=== PATIENT | male | born 1965 | race Caucasian/White ===

== ENCOUNTER 2017-08-04 11:45 | Day surgery (SDC) | payer OTHER ==
[~2017-08-04] VITALS: Ht 195.6 cm; Wt 93.2 kg
[2017-08-04 11:55] VITALS: BP 130/80
[2017-08-04] MEDS ORDERED: NO HOME MEDS (12:01)
[2017-08-04] MEDS ORDERED: fentaNYL/PF 50MCG/1 ML 2ML syringe ONE (12:17)
[2017-08-04] MEDS ORDERED: MIDAZolam 1mg/ml 10ml vial ONE (12:17)
[2017-08-04 13:32] VITALS: BP 129/78
[2017-08-04 13:40] VITALS: BP 129/79
[2017-08-04 13:50] VITALS: BP 131/78
[2017-08-04 14:00] VITALS: BP 124/60
== END 2017-08-04 14:14 | disposition home or self-care (01) ==
LOC: GI LAB 11:45
PROVIDERS: ATTEND Internal Medicine Gastroenterology
DX: Z12.11 Encounter for screening for malignant neoplasm of colon (principal); Z90.89 Acquired absence of other organs; Z98.890 Other specified postprocedural states; Z72.89 Other problems related to lifestyle
CPT/HCPCS: 45378; 99152; J2250; J3010; J7030; A4620; G0500

== ENCOUNTER 2018-04-09 07:04 | Outpatient (CLI) | payer OTHER ==
[~2018-04-09 07:04] MED LIST: NO HOME MEDS
[2018-04-09 08:33] LABS: BASOPHILS # (AUTO) 0.1 X10'3 (0-0.2); BASOPHILS % (AUTO) 1.1 % (0-1); EOSINOPHILS # (AUTO) 0.1 X10'3 (0-0.9); EOSINOPHILS % (AUTO) 1.8 % (0-6); HEMATOCRIT 48.8 % (42.0-52.0); HEMOGLOBIN 16.6 g/dl (14.0-17.9); LYMPHOCYTES # (AUTO) 1.6 X10'3 (1.1-4.8); LYMPHOCYTES % (AUTO) 31.4 % (21-51); MEAN CORPUSCULAR HEMOGLOBIN 32.3 PG (27.0-31.0); MEAN CORPUSCULAR VOLUME 94.9 FL (78-98); MEAN PLATELET VOLUME 9.6 FL (7.4-10.4); MONOCYTES # (AUTO) 0.4 X10'3 (0-0.9); MONOCYTES % (AUTO) 7.8 % (2-12); NEUTROPHILS # (AUTO) 2.9 X10'3 (1.8-7.7); NEUTROPHILS % (AUTO) 57.9 % (42-75); PLATELET COUNT 199 X10'3 (140-440); RED BLOOD COUNT 5.15 X10'6 (4.70-6.10); RED CELL DISTRIBUTION WIDTH 13.1 % (11.5-14.5); WHITE BLOOD COUNT 4.9 X10'3 (4.5-11.0)
[2018-04-09 09:18] LABS: ALANINE AMINOTRANSFERASE 33 U/L (12-78); ALBUMIN 4.5 G/DL (3.4-5.0); ALBUMIN/GLOBULIN RATIO 1.2 (1.1-1.5); ALKALINE PHOSPHATASE 87 IU/L (46-116); ANION GAP 10 (8-16); ASPARTATE AMINO TRANSFERASE 23 U/L (10-37); BILIRUBIN,TOTAL 0.6 MG/DL (0.1-1.0); BLOOD UREA NITROGEN 19 MG/DL (7-18); BUN/CREATININE RATIO 19.2 (5.4-32.0); CALCIUM 9.2 MG/DL (8.5-10.1); CHLORIDE 102 MMOL/L (99-107); CREATININE 0.99 MG/DL (0.60-1.10); FERRITIN 218 NG/ML (26-388); GLUCOSE 89 MG/DL (70-104); MAGNESIUM 2.3 MG/DL (1.5-2.4); SODIUM 140 MMOL/L (135-145); TOTAL CARBON DIOXIDE 28.3 MMOL/L (24-32); TOTAL PROTEIN 8.4 G/DL (6.4-8.2); eGFR 79 ML/MIN
[2018-04-09 10:57] LABS: CHOL/HDL RATIO 2.8 (0.00-4.99); CHOLESTEROL 224 MG/DL (0-200); HDL CHOLESTEROL 80 MG/DL (35-60); LDL CHOLESTEROL 137 MG/DL (50-100); TRIGLYCERIDES 53 MG/DL (20-135)
[2018-04-10 05:20] LABS: VITAMIN D, 25-HYDROXY 42.9 ng/mL (30.0-100.0)
[2018-04-10 06:17] LABS: PSA, ULTRASENSITIVE W/O SERIAL 0.722 ng/mL (0.000-4.000)
[2018-04-10 09:53] LABS: ESTRADIOL 29.7 pg/mL (7.6-42.6); SEX HORM BINDING GLOB, SERUM 78.9 nmol/L (19.3-76.4)
[2018-04-10 11:10] LABS: ACTH, PLASMA 45.3 pg/mL (7.2-63.3)
[2018-04-10 13:21] LABS: THIIODOTHRONINE, FREE, SERUM 4.1 pg/mL (2.0-4.4)
== END 2018-04-09 23:59 | disposition home or self-care (01) ==
LOC: LAB 07:04
PROVIDERS: ATTEND Anesthesiology
DX: D50.9 Iron deficiency anemia, unspecified (principal); E60 Dietary zinc deficiency; T56.1X4A Toxic effect of mercury and its compounds, undetermined, initial encounter; E27.40 Unspecified adrenocortical insufficiency; E27.9 Disorder of adrenal gland, unspecified; E55.9 Vitamin D deficiency, unspecified; E02 Subclinical iodine-deficiency hypothyroidism; E59 Dietary selenium deficiency; R79.1 Abnormal coagulation profile; R73.01 Impaired fasting glucose; R53.81 Other malaise; R53.83 Other fatigue; R79.82 Elevated C-reactive protein (CRP); E06.3 Autoimmune thyroiditis; E06.9 Thyroiditis, unspecified; R35.1 Nocturia; N40.0 Benign prostatic hyperplasia without lower urinary tract symptoms; E46 Unspecified protein-calorie malnutrition; E29.1 Testicular hypofunction; E29.9 Testicular dysfunction, unspecified; Y92.89 Other specified places as the place of occurrence of the external cause
CPT/HCPCS: 36415; 80053; 80061; 82024; 82306; 82533; 82670; 82679; 82728; 83520; 83735; 84153; 84270; 84439; 84443; 84481; 84630; 85025; 86140

== ENCOUNTER 2018-04-28 12:41 | Outpatient (CLI) | payer OTHER | END 2018-04-28 23:59 | disposition home or self-care (01) | LOC: RAD 12:41 | PROVIDERS: ATTEND Family Medicine | DX: R10.11 Right upper quadrant pain (principal) | CPT/HCPCS: 76700 ==

== ENCOUNTER 2018-10-07 14:21 | Outpatient (CLI) | payer OTHER | END 2018-10-07 23:59 | disposition home or self-care (01) | LOC: RAD 14:21 | PROVIDERS: ATTEND Family Medicine | DX: Z00.00 Encounter for general adult medical examination without abnormal findings (principal); J92.9 Pleural plaque without asbestos; G47.30 Sleep apnea, unspecified; F17.290 Nicotine dependence, other tobacco product, uncomplicated; Z86.008 Personal history of in-situ neoplasm of other site | CPT/HCPCS: 71101 ==

== ENCOUNTER 2018-12-07 13:45 | Outpatient (CLI) | payer OTHER ==
[~2018-12-07] VITALS: Ht 193 cm; Wt 93.2 kg
[2018-12-07] MEDS ORDERED: NORMAL SALINE IV ONE (15:30)
[2018-12-07] MEDS ORDERED: SINCALIDE IV ONE (15:30)
== END 2018-12-07 23:59 | disposition home or self-care (01) ==
LOC: RAD 13:45
PROVIDERS: ATTEND Family Medicine
DX: K82.9 Disease of gallbladder, unspecified (principal)
CPT/HCPCS: 78227; A9537; J2805; J7030

== ENCOUNTER 2019-05-26 12:47 | Outpatient (CLI) | payer OTHER ==
[2019-05-26] MEDS ORDERED: iohexol 300mg/ml 100ml inj. ONE ×2 (14:14→14:46)
[2019-05-26 15:29] LABS: CLARITY,URINE CLEAR (Clear); COLOR,URINE YELLOW (Yellow); GLUCOSE, URINE NEGATIVE (Neg); KETONES,URINE NEGATIVE (Neg); LEUKOCYTE ESTERASE ,URINE NEGATIVE (Neg); NITRITES, URINE NEGATIVE (Neg); OCCULT BLOOD,URINE TRACE-INTACT (Neg); PH,URINE 6.5 (4.8-8.0); PROTEIN,URINE NEGATIVE (Neg); UROBILINOGEN,URINE 0.2 E.U/dL (0.2-1.0)
[2019-05-26 15:30] LABS: UA COLLECTION TYPE NON-SPECIFIED
[2019-05-26 15:58] LABS: MUCUS STRANDS FEW /LPF (Neg)
[2019-05-26 15:59] LABS: SQUAMOUS EPITHELIAL CELL,UR NONE SEEN /LPF (FEW)
[2019-05-26 16:00] LABS: RBC,URINE 0-2 /HPF (0-2); WBC,URINE 0-4 /HPF (0-4)
[2019-05-26 16:01] LABS: BACTERIA,URINE NONE SEEN /HPF (Neg)
[2019-05-26 16:12] LABS: BASOPHILS % (AUTO) 0.4 % (0-1); EOSINOPHILS % (AUTO) 0.4 % (0-6); HEMATOCRIT 46.8 % (42.0-52.0); HEMOGLOBIN 16.3 g/dl (14.0-17.9); LYMPHOCYTES # (AUTO) 1.7 X10'3 (1.1-4.8); LYMPHOCYTES % (AUTO) 26.1 % (21-51); MEAN CORPUSCULAR HEMOGLOBIN 32.8 PG (27.0-31.0); MEAN CORPUSCULAR HGB CONC 34.9 g/dL (33.0-36.5); MEAN CORPUSCULAR VOLUME 93.9 FL (78-98); MEAN PLATELET VOLUME 8.9 FL (7.4-10.4); MONOCYTES # (AUTO) 0.4 X10'3 (0-0.9); MONOCYTES % (AUTO) 6.6 % (2-12); NEUTROPHILS # (AUTO) 4.3 X10'3 (1.8-7.7); NEUTROPHILS % (AUTO) 66.5 % (42-75); PLATELET COUNT 209 X10'3 (140-440); RED BLOOD COUNT 4.99 X10'6 (4.70-6.10); RED CELL DISTRIBUTION WIDTH 12.7 % (11.5-14.5); WHITE BLOOD COUNT 6.5 X10'3 (4.5-11.0)
[2019-05-26 16:26] LABS: ALANINE AMINOTRANSFERASE 35 U/L (12-78); ALBUMIN 4.5 G/DL (3.4-5.0); ALBUMIN/GLOBULIN RATIO 1.2 (1.1-1.5); ALKALINE PHOSPHATASE 87 IU/L (46-116); ANION GAP 11 (8-16); ASPARTATE AMINO TRANSFERASE 20 U/L (10-37); BILIRUBIN,TOTAL 0.6 MG/DL (0.1-1.0); BLOOD UREA NITROGEN 12 MG/DL (7-18); BUN/CREATININE RATIO 11.9 (5.4-32.0); CALCIUM 9.4 MG/DL (8.5-10.1); CHLORIDE 105 MMOL/L (99-107); CHOL/HDL RATIO 3.5 (0.00-4.99); CHOLESTEROL 233 MG/DL (0-200); CREATININE 1.01 MG/DL (0.60-1.10); GLUCOSE 80 MG/DL (70-104); HDL CHOLESTEROL 66 MG/DL (35-60); LDL CHOLESTEROL 153 MG/DL (50-100); SODIUM 142 MMOL/L (135-145); TOTAL CARBON DIOXIDE 25.8 MMOL/L (24-32); TOTAL PROTEIN 8.4 G/DL (6.4-8.2); TRIGLYCERIDES 58 MG/DL (20-135); eGFR 77 ML/MIN
[2019-05-26 17:04] LABS: MAGNESIUM 2.2 MG/DL (1.5-2.4)
== END 2019-05-26 23:59 | disposition home or self-care (01) ==
LOC: 64 CT 12:47
PROVIDERS: ATTEND Family Medicine
DX: R10.11 Right upper quadrant pain (principal); K40.90 Unilateral inguinal hernia, without obstruction or gangrene, not specified as recurrent; R77.9 Abnormality of plasma protein, unspecified; D50.9 Iron deficiency anemia, unspecified; N40.0 Benign prostatic hyperplasia without lower urinary tract symptoms; I10 Essential (primary) hypertension
CPT/HCPCS: 36415; 71260; 74176; 74177; 76937; 80053; 80061; 81001; 83735; 84402; 84403; 84439; 84443; 85025; Q9967

== ENCOUNTER 2019-05-26 15:28 | Outpatient (CLI) | payer OTHER ==
[2019-05-26 16:48] LABS: HEMATOCRIT 46.8 % (42.0-52.0); HEMOGLOBIN 16.3 g/dl (14.0-17.9); MEAN CORPUSCULAR HEMOGLOBIN 32.8 PG (27.0-31.0); MEAN CORPUSCULAR HGB CONC 34.9 g/dL (33.0-36.5); MEAN CORPUSCULAR VOLUME 93.9 FL (78-98); MEAN PLATELET VOLUME 8.9 FL (7.4-10.4); NEUTROPHILS % (AUTO) 66.5 % (42-75); PLATELET COUNT 209 X10'3 (140-440); RED BLOOD COUNT 4.99 X10'6 (4.70-6.10); RED CELL DISTRIBUTION WIDTH 12.7 % (11.5-14.5); WHITE BLOOD COUNT 6.5 X10'3 (4.5-11.0)
[2019-05-26 16:49] LABS: BASOPHILS % (AUTO) 0.4 % (0-1); EOSINOPHILS % (AUTO) 0.4 % (0-6); LYMPHOCYTES # (AUTO) 1.7 X10'3 (1.1-4.8); LYMPHOCYTES % (AUTO) 26.1 % (21-51); MONOCYTES # (AUTO) 0.4 X10'3 (0-0.9); MONOCYTES % (AUTO) 6.6 % (2-12); NEUTROPHILS # (AUTO) 4.3 X10'3 (1.8-7.7)
[2019-05-26 16:50] LABS: ANION GAP 11 (8-16); BLOOD UREA NITROGEN 12 MG/DL (7-18); BUN/CREATININE RATIO 11.9 (5.4-32.0); CALCIUM 9.4 MG/DL (8.5-10.1); CHLORIDE 105 MMOL/L (99-107); CREATININE 1.01 MG/DL (0.60-1.10); GLUCOSE 80 MG/DL (70-104); SODIUM 142 MMOL/L (135-145); TOTAL CARBON DIOXIDE 25.8 MMOL/L (24-32); eGFR 77 ML/MIN
[2019-05-26 16:51] LABS: ALANINE AMINOTRANSFERASE 35 U/L (12-78); ALBUMIN 4.5 G/DL (3.4-5.0); ALBUMIN/GLOBULIN RATIO 1.2 (1.1-1.5); ALKALINE PHOSPHATASE 87 IU/L (46-116); ASPARTATE AMINO TRANSFERASE 20 U/L (10-37); BILIRUBIN,TOTAL 0.6 MG/DL (0.1-1.0); TOTAL PROTEIN 8.4 G/DL (6.4-8.2)
[2019-05-26 16:54] LABS: HEMOGLOBIN A1C 5.7 % (4.5-6.2)
[2019-05-26 17:13] LABS: MAGNESIUM 2.2 MG/DL (1.5-2.4)
[2019-05-28 08:09] LABS: PSA, ULTRASENSITIVE W/O SERIAL 0.645 ng/mL (0.000-4.000)
[2019-05-28 11:09] LABS: ESTRADIOL 20.5 pg/mL (7.6-42.6); SEX HORM BINDING GLOB, SERUM 62.7 nmol/L (19.3-76.4)
== END 2019-05-26 23:59 | disposition home or self-care (01) ==
LOC: LAB 15:28
PROVIDERS: ATTEND Anesthesiology
DX: D50.9 Iron deficiency anemia, unspecified (principal); N40.0 Benign prostatic hyperplasia without lower urinary tract symptoms; E34.9 Endocrine disorder, unspecified; E23.0 Hypopituitarism; I10 Essential (primary) hypertension; R79.1 Abnormal coagulation profile; R68.89 Other general symptoms and signs; R73.01 Impaired fasting glucose
CPT/HCPCS: 36415; 80053; 82670; 82679; 83036; 83735; 84153; 84270; 84305; 85025

== ENCOUNTER 2019-07-07 14:22 | Outpatient (CLI) | payer OTHER ==
[2019-07-07 15:38] LABS: BASOPHILS % (AUTO) 0.6 % (0-1); EOSINOPHILS # (AUTO) 0.1 X10'3 (0-0.9); EOSINOPHILS % (AUTO) 1.4 % (0-6); HEMATOCRIT 47.3 % (42.0-52.0); HEMOGLOBIN 16.3 g/dl (14.0-17.9); LYMPHOCYTES # (AUTO) 1.6 X10'3 (1.1-4.8); LYMPHOCYTES % (AUTO) 27.4 % (21-51); MEAN CORPUSCULAR HEMOGLOBIN 32.7 PG (27.0-31.0); MEAN CORPUSCULAR HGB CONC 34.4 g/dL (33.0-36.5); MEAN CORPUSCULAR VOLUME 95.2 FL (78-98); MEAN PLATELET VOLUME 9.4 FL (7.4-10.4); MONOCYTES # (AUTO) 0.6 X10'3 (0-0.9); MONOCYTES % (AUTO) 10.5 % (2-12); NEUTROPHILS # (AUTO) 3.4 X10'3 (1.8-7.7); NEUTROPHILS % (AUTO) 60.1 % (42-75); PLATELET COUNT 221 X10'3 (140-440); RED BLOOD COUNT 4.97 X10'6 (4.70-6.10); RED CELL DISTRIBUTION WIDTH 13.3 % (11.5-14.5); WHITE BLOOD COUNT 5.7 X10'3 (4.5-11.0)
[2019-07-07 15:53] LABS: ALANINE AMINOTRANSFERASE 36 U/L (12-78); ALBUMIN/GLOBULIN RATIO 1.1 (1.1-1.5); ALKALINE PHOSPHATASE 91 IU/L (46-116); ANION GAP 4 (8-16); ASPARTATE AMINO TRANSFERASE 17 U/L (10-37); BILIRUBIN,TOTAL 0.5 MG/DL (0.1-1.0); BLOOD UREA NITROGEN 16 MG/DL (7-18); BUN/CREATININE RATIO 15.2 (5.4-32.0); CALCIUM 8.8 MG/DL (8.5-10.1); CHLORIDE 108 MMOL/L (99-107); CREATININE 1.05 MG/DL (0.60-1.10); GLUCOSE 86 MG/DL (70-104); POTASSIUM 4.1 MMOL/L (3.5-5.1); SODIUM 144 MMOL/L (135-145); TOTAL CARBON DIOXIDE 32.5 MMOL/L (24-32); TOTAL PROTEIN 7.5 G/DL (6.4-8.2); eGFR 73 ML/MIN
[2019-07-09 13:05] LABS: ESTRADIOL 21.5 pg/mL (7.6-42.6)
[2019-07-09 17:21] LABS: PSA, ULTRASENSITIVE W/O SERIAL 0.937 ng/mL (0.000-4.000)
== END 2019-07-07 23:59 | disposition home or self-care (01) ==
LOC: LAB 14:22
PROVIDERS: ATTEND Anesthesiology
DX: E29.1 Testicular hypofunction (principal)
CPT/HCPCS: 36415; 80053; 82670; 82679; 83735; 84153; 85025

== ENCOUNTER 2020-01-26 12:53 | Outpatient (CLI) | payer BC | END 2020-01-26 23:59 | disposition home or self-care (01) | LOC: RAD 12:53 | PROVIDERS: ATTEND Family Medicine | DX: M48.02 Spinal stenosis, cervical region (principal) | CPT/HCPCS: 72141 ==

== ENCOUNTER → 2020-04-20 | Outpatient (CLI) | payer BC ==
[2020-04-20 13:53] LABS: BASOPHILS # (AUTO) 0.1 X10'3 (0-0.2); BASOPHILS % (AUTO) 0.9 % (0-1); EOSINOPHILS # (AUTO) 0.2 X10'3 (0-0.9); EOSINOPHILS % (AUTO) 2.4 % (0-6); HEMATOCRIT 48.1 % (42.0-52.0); HEMOGLOBIN 16.4 g/dl (14.0-17.9); MEAN CORPUSCULAR HEMOGLOBIN 32.8 PG (27.0-31.0); MEAN CORPUSCULAR VOLUME 96.4 FL (78-98); MEAN PLATELET VOLUME 8.7 FL (7.4-10.4); MONOCYTES # (AUTO) 0.6 X10'3 (0-0.9); MONOCYTES % (AUTO) 9.3 % (2-12); NEUTROPHILS # (AUTO) 3.8 X10'3 (1.8-7.7); NEUTROPHILS % (AUTO) 57.4 % (42-75); PLATELET COUNT 193 X10'3 (140-440); RED BLOOD COUNT 4.99 X10'6 (4.70-6.10); RED CELL DISTRIBUTION WIDTH 13.1 % (11.5-14.5); WHITE BLOOD COUNT 6.6 X10'3 (4.5-11.0)
[2020-04-20 14:07] LABS: ALANINE AMINOTRANSFERASE 37 U/L (12-78); ALBUMIN 4.6 G/DL (3.4-5.0); ALBUMIN/GLOBULIN RATIO 1.3 (1.1-1.5); ALKALINE PHOSPHATASE 99 IU/L (46-116); ANION GAP 5 (8-16); ASPARTATE AMINO TRANSFERASE 23 U/L (10-37); BILIRUBIN,TOTAL 0.5 MG/DL (0.1-1.0); BLOOD UREA NITROGEN 19 MG/DL (7-18); CALCIUM 8.7 MG/DL (8.5-10.1); CHLORIDE 103 MMOL/L (99-107); CREATININE 1.12 MG/DL (0.60-1.10); GLUCOSE 80 MG/DL (70-104); POTASSIUM 3.8 MMOL/L (3.5-5.1); SODIUM 135 MMOL/L (135-145); TOTAL CARBON DIOXIDE 27.1 MMOL/L (24-32); TOTAL PROTEIN 8.2 G/DL (6.4-8.2); eGFR 68 ML/MIN
[2020-04-20 15:38] LABS: HEMOGLOBIN A1C 5.2 % (4.5-6.2)
== END | disposition home or self-care (01) ==
LOC: LAB 13:19
PROVIDERS: ATTEND Anesthesiology
DX: I10 Essential (primary) hypertension (principal); N40.0 Benign prostatic hyperplasia without lower urinary tract symptoms; D50.0 Iron deficiency anemia secondary to blood loss (chronic); E55.9 Vitamin D deficiency, unspecified; R68.89 Other general symptoms and signs; R79.1 Abnormal coagulation profile; R73.01 Impaired fasting glucose; E29.1 Testicular hypofunction; E29.9 Testicular dysfunction, unspecified; R53.81 Other malaise; R53.83 Other fatigue; Z13.21 Encounter for screening for nutritional disorder
CPT/HCPCS: 36415; 80053; 82670; 82679; 83036; 83735; 84153; 84402; 84403; 84410; 85025

== ENCOUNTER → 2020-05-10 | Emergency (ER) | payer BC ==
[~2020-05-10] VITALS: Ht 195.6 cm; Wt 97.7 kg
[2020-05-10 13:15] VITALS: BP 141/88
== END | disposition home or self-care (01) ==
LOC: ER 12:49
DX: R51.9 Headache, unspecified (principal); Z20.828 Contact with and (suspected) exposure to other viral communicable diseases
CPT/HCPCS: 36415; 99282

== ENCOUNTER 2020-07-19 12:26 | Outpatient (CLI) | payer BC ==
[2020-07-19 13:34] LABS: BASOPHILS % (AUTO) 0.6 % (0-1); EOSINOPHILS # (AUTO) 0.1 X10'3 (0-0.9); EOSINOPHILS % (AUTO) 0.9 % (0-6); HEMOGLOBIN 17.1 g/dl (14.0-17.9); LYMPHOCYTES # (AUTO) 1.2 X10'3 (1.1-4.8); LYMPHOCYTES % (AUTO) 16.1 % (21-51); MEAN CORPUSCULAR HEMOGLOBIN 32.6 PG (27.0-31.0); MEAN CORPUSCULAR HGB CONC 34.2 g/dL (33.0-36.5); MEAN CORPUSCULAR VOLUME 95.2 FL (78-98); MEAN PLATELET VOLUME 9.8 FL (7.4-10.4); MONOCYTES # (AUTO) 0.5 X10'3 (0-0.9); MONOCYTES % (AUTO) 7.4 % (2-12); NEUTROPHILS # (AUTO) 5.5 X10'3 (1.8-7.7); PLATELET COUNT 188 X10'3 (140-440); RED BLOOD COUNT 5.25 X10'6 (4.70-6.10); RED CELL DISTRIBUTION WIDTH 12.8 % (11.5-14.5); WHITE BLOOD COUNT 7.3 X10'3 (4.5-11.0)
[2020-07-19 13:45] LABS: ALANINE AMINOTRANSFERASE 42 U/L (12-78); ALBUMIN 4.7 G/DL (3.4-5.0); ALBUMIN/GLOBULIN RATIO 1.2 (1.1-1.5); ALKALINE PHOSPHATASE 107 IU/L (46-116); ANION GAP 9 (8-16); ASPARTATE AMINO TRANSFERASE 21 U/L (10-37); BILIRUBIN,TOTAL 0.6 MG/DL (0.1-1.0); BLOOD UREA NITROGEN 17 MG/DL (7-18); BUN/CREATININE RATIO 15.6 (5.4-32.0); CALCIUM 9.3 MG/DL (8.5-10.1); CHLORIDE 104 MMOL/L (99-107); CHOLESTEROL 219 MG/DL (0-200); CREATININE 1.09 MG/DL (0.60-1.10); GLUCOSE 88 MG/DL (70-104); HDL CHOLESTEROL 72 MG/DL (35-60); LDL CHOLESTEROL 138 MG/DL (50-100); MAGNESIUM 2.1 MG/DL (1.5-2.4); POTASSIUM 4.1 MMOL/L (3.5-5.1); SODIUM 140 MMOL/L (135-145); TOTAL PROTEIN 8.5 G/DL (6.4-8.2); TRIGLYCERIDES 62 MG/DL (20-135); eGFR 70 ML/MIN
[2020-07-19 13:53] LABS: HEMOGLOBIN A1C 5.6 % (4.5-6.2)
[2020-07-20 09:06] LABS: ESTRADIOL <5.0 pg/mL (7.6-42.6); PSA, ULTRASENSITIVE W/O SERIAL 0.748 ng/mL (0.000-4.000)
[2020-07-20 15:58] LABS: ACTH, PLASMA 24.8 pg/mL (7.2-63.3)
== END 2020-07-19 23:59 | disposition home or self-care (01) ==
LOC: LAB 12:26
PROVIDERS: ATTEND Anesthesiology
DX: Z13.21 Encounter for screening for nutritional disorder (principal); I10 Essential (primary) hypertension; R68.89 Other general symptoms and signs; D50.9 Iron deficiency anemia, unspecified; R79.1 Abnormal coagulation profile; R73.01 Impaired fasting glucose; N40.0 Benign prostatic hyperplasia without lower urinary tract symptoms; E29.1 Testicular hypofunction; E55.9 Vitamin D deficiency, unspecified; E29.9 Testicular dysfunction, unspecified; R53.81 Other malaise; R53.83 Other fatigue; Z01.84 Encounter for antibody response examination
CPT/HCPCS: 36415; 80053; 80061; 82024; 82670; 82679; 83036; 83735; 84153; 85025

== ENCOUNTER 2020-12-17 13:37 | Outpatient (CLI) | payer BC ==
[2020-12-17 14:16] LABS: BASOPHILS % (AUTO) 0.5 % (0-1); EOSINOPHILS # (AUTO) 0.2 X10'3 (0-0.9); EOSINOPHILS % (AUTO) 3.3 % (0-6); HEMOGLOBIN 16.3 g/dl (14.0-17.9); LYMPHOCYTES # (AUTO) 1.6 X10'3 (1.1-4.8); LYMPHOCYTES % (AUTO) 28.2 % (21-51); MEAN CORPUSCULAR HEMOGLOBIN 32.9 PG (27.0-31.0); MEAN CORPUSCULAR VOLUME 96.9 FL (78-98); MEAN PLATELET VOLUME 8.9 FL (7.4-10.4); MONOCYTES # (AUTO) 0.5 X10'3 (0-0.9); MONOCYTES % (AUTO) 9.8 % (2-12); NEUTROPHILS # (AUTO) 3.2 X10'3 (1.8-7.7); NEUTROPHILS % (AUTO) 58.2 % (42-75); PLATELET COUNT 188 X10'3 (140-440); RED BLOOD COUNT 4.95 X10'6 (4.70-6.10); RED CELL DISTRIBUTION WIDTH 12.8 % (11.5-14.5); WHITE BLOOD COUNT 5.6 X10'3 (4.5-11.0)
[2020-12-17 14:29] LABS: ALANINE AMINOTRANSFERASE 33 U/L (12-78); ALBUMIN 4.2 G/DL (3.4-5.0); ALBUMIN/GLOBULIN RATIO 1.3 (1.1-1.5); ALKALINE PHOSPHATASE 89 IU/L (46-116); ANION GAP 6 (8-16); ASPARTATE AMINO TRANSFERASE 22 U/L (10-37); BILIRUBIN,TOTAL 0.5 MG/DL (0.1-1.0); BLOOD UREA NITROGEN 18 MG/DL (7-18); BUN/CREATININE RATIO 16.5 (5.4-32.0); CALCIUM 8.4 MG/DL (8.5-10.1); CHLORIDE 106 MMOL/L (99-107); CREATININE 1.09 MG/DL (0.60-1.10); GLUCOSE 78 MG/DL (70-104); POTASSIUM 3.9 MMOL/L (3.5-5.1); SODIUM 140 MMOL/L (135-145); TOTAL CARBON DIOXIDE 27.9 MMOL/L (24-32); TOTAL PROTEIN 7.5 G/DL (6.4-8.2); eGFR 70 ML/MIN
[2020-12-17 14:44] LABS: HEMOGLOBIN A1C 5.7 % (4.5-6.2)
== END 2020-12-17 23:59 | disposition home or self-care (01) ==
LOC: LAB 13:37
DX: N40.0 Benign prostatic hyperplasia without lower urinary tract symptoms (principal); E29.1 Testicular hypofunction; E55.9 Vitamin D deficiency, unspecified; E29.9 Testicular dysfunction, unspecified; R53.81 Other malaise; R53.83 Other fatigue; R68.89 Other general symptoms and signs; D50.9 Iron deficiency anemia, unspecified; R79.1 Abnormal coagulation profile; R73.01 Impaired fasting glucose; I10 Essential (primary) hypertension; Z13.21 Encounter for screening for nutritional disorder
CPT/HCPCS: 36415; 80053; 82306; 82670; 82679; 83036; 83735; 84153; 84154; 84410; 85025

== ENCOUNTER 2020-12-24 05:14 | Emergency (ER) | payer BC ==
[~2020-12-24] VITALS: Ht 195.6 cm; Wt 100.0 kg
[2020-12-24 06:01] LABS: BASOPHILS % (AUTO) 0.5 % (0-1); EOSINOPHILS # (AUTO) 0.2 X10'3 (0-0.9); EOSINOPHILS % (AUTO) 3.4 % (0-6); HEMATOCRIT 46.5 % (42.0-52.0); HEMOGLOBIN 15.9 g/dl (14.0-17.9); LYMPHOCYTES # (AUTO) 1.6 X10'3 (1.1-4.8); LYMPHOCYTES % (AUTO) 27.8 % (21-51); MEAN CORPUSCULAR HEMOGLOBIN 32.8 PG (27.0-31.0); MEAN CORPUSCULAR HGB CONC 34.2 g/dL (33.0-36.5); MEAN CORPUSCULAR VOLUME 95.8 FL (78-98); MEAN PLATELET VOLUME 8.8 FL (7.4-10.4); MONOCYTES # (AUTO) 0.5 X10'3 (0-0.9); MONOCYTES % (AUTO) 9.6 % (2-12); NEUTROPHILS # (AUTO) 3.4 X10'3 (1.8-7.7); NEUTROPHILS % (AUTO) 58.7 % (42-75); PLATELET COUNT 189 X10'3 (140-440); RED BLOOD COUNT 4.85 X10'6 (4.70-6.10); RED CELL DISTRIBUTION WIDTH 12.8 % (11.5-14.5); WHITE BLOOD COUNT 5.7 X10'3 (4.5-11.0)
[2020-12-24] MEDS ORDERED: OMEP40CA21 PO (06:06)
[2020-12-24 06:15] LABS: ALANINE AMINOTRANSFERASE 37 U/L (12-78); ALBUMIN 3.9 G/DL (3.4-5.0); ALBUMIN/GLOBULIN RATIO 1.2 (1.1-1.5); ALKALINE PHOSPHATASE 84 IU/L (46-116); ANION GAP 11 (8-16); ASPARTATE AMINO TRANSFERASE 19 U/L (10-37); BILIRUBIN,TOTAL 0.7 MG/DL (0.1-1.0); BLOOD UREA NITROGEN 21 MG/DL (7-18); BUN/CREATININE RATIO 18.3 (5.4-32.0); CALCIUM 9.1 MG/DL (8.5-10.1); CHLORIDE 106 MMOL/L (99-107); CREATININE 1.15 MG/DL (0.60-1.10); GLUCOSE 97 MG/DL (70-104); POTASSIUM 3.9 MMOL/L (3.5-5.1); SODIUM 141 MMOL/L (135-145); TOTAL CARBON DIOXIDE 23.8 MMOL/L (24-32); TOTAL PROTEIN 7.2 G/DL (6.4-8.2); eGFR 66 ML/MIN
[2020-12-24 06:51] VITALS: BP 111/75
== END 2020-12-24 06:54 | disposition home or self-care (01) ==
LOC: ER 05:15
DX: R07.89 Other chest pain (principal); R51.9 Headache, unspecified; Z72.89 Other problems related to lifestyle; Z79.899 Other long term (current) drug therapy
CPT/HCPCS: 36415; 71045; 80053; 83880; 84484; 85025; 93005; 99285

== ENCOUNTER 2021-03-14 06:57 | Outpatient (CLI) | payer BC ==
[2021-03-14 09:39] LABS: BASOPHILS % (AUTO) 0.6 % (0-1); EOSINOPHILS # (AUTO) 0.1 X10'3 (0-0.9); EOSINOPHILS % (AUTO) 2.1 % (0-6); HEMOGLOBIN 15.4 g/dl (14.0-17.9); LYMPHOCYTES # (AUTO) 1.4 X10'3 (1.1-4.8); LYMPHOCYTES % (AUTO) 34.5 % (21-51); MEAN CORPUSCULAR HEMOGLOBIN 32.6 PG (27.0-31.0); MEAN CORPUSCULAR HGB CONC 34.2 g/dL (33.0-36.5); MEAN CORPUSCULAR VOLUME 95.4 FL (78-98); MEAN PLATELET VOLUME 9.2 FL (7.4-10.4); MONOCYTES # (AUTO) 0.4 X10'3 (0-0.9); MONOCYTES % (AUTO) 9.7 % (2-12); NEUTROPHILS # (AUTO) 2.2 X10'3 (1.8-7.7); NEUTROPHILS % (AUTO) 53.1 % (42-75); PLATELET COUNT 191 X10'3 (140-440); RED BLOOD COUNT 4.71 X10'6 (4.70-6.10); RED CELL DISTRIBUTION WIDTH 13.4 % (11.5-14.5); WHITE BLOOD COUNT 4.2 X10'3 (4.5-11.0)
[2021-03-14 09:46] LABS: % IRON SATURATION 36 % (11-46); IRON 120 UG/DL (53-167); TOTAL IRON BINDING CAPACITY 338 UG/DL (259-388)
[2021-03-14 09:58] LABS: ALANINE AMINOTRANSFERASE 46 U/L (12-78); ALBUMIN 4.3 G/DL (3.4-5.0); ALBUMIN/GLOBULIN RATIO 1.4 (1.1-1.5); ALKALINE PHOSPHATASE 97 IU/L (46-116); ANION GAP 10 (8-16); ASPARTATE AMINO TRANSFERASE 27 U/L (10-37); BILIRUBIN,TOTAL 0.5 MG/DL (0.1-1.0); BLOOD UREA NITROGEN 18 MG/DL (7-18); BUN/CREATININE RATIO 16.8 (5.4-32.0); CALCIUM 8.8 MG/DL (8.5-10.1); CHLORIDE 106 MMOL/L (99-107); CREATININE 1.07 MG/DL (0.60-1.10); FERRITIN 237 NG/ML (26-388); GLUCOSE 79 MG/DL (70-104); HDL CHOLESTEROL 66 MG/DL (35-60); LDL CHOLESTEROL 131 MG/DL (50-100); MAGNESIUM 2.3 MG/DL (1.5-2.4); POTASSIUM 4.6 MMOL/L (3.5-5.1); SODIUM 143 MMOL/L (135-145); TOTAL CARBON DIOXIDE 26.7 MMOL/L (24-32); TOTAL PROTEIN 7.3 G/DL (6.4-8.2); TRIGLYCERIDES 56 MG/DL (20-135); eGFR 71 ML/MIN
[2021-03-14 10:12] LABS: HEMOGLOBIN A1C 5.4 % (4.5-6.2)
[2021-03-14 10:54] LABS: CHOL/HDL RATIO 3.4 (0.00-4.99); CHOLESTEROL 225 MG/DL (0-200)
[2021-03-15 10:57] LABS: ESTRADIOL <5.0 pg/mL (7.6-42.6); INSULIN 5.6 uIU/mL (2.6-24.9); PSA, ULTRASENSITIVE W/O SERIAL 0.752 ng/mL (0.000-4.000); THIIODOTHRONINE, FREE, SERUM 3.8 pg/mL (2.0-4.4)
== END 2021-03-14 23:59 | disposition home or self-care (01) ==
LOC: LAB 06:57
PROVIDERS: ATTEND Anesthesiology
DX: Z00.00 Encounter for general adult medical examination without abnormal findings (principal); D50.9 Iron deficiency anemia, unspecified; R68.89 Other general symptoms and signs; R79.1 Abnormal coagulation profile; R73.01 Impaired fasting glucose; I10 Essential (primary) hypertension; E61.2 Magnesium deficiency; E87.6 Hypokalemia; E78.2 Mixed hyperlipidemia; I70.91 Generalized atherosclerosis; E06.3 Autoimmune thyroiditis; E03.9 Hypothyroidism, unspecified; E60 Dietary zinc deficiency; E06.9 Thyroiditis, unspecified; E61.0 Copper deficiency; E59 Dietary selenium deficiency; E61.4 Chromium deficiency; E27.40 Unspecified adrenocortical insufficiency; E27.9 Disorder of adrenal gland, unspecified; N40.0 Benign prostatic hyperplasia without lower urinary tract symptoms; R79.82 Elevated C-reactive protein (CRP); E29.9 Testicular dysfunction, unspecified; E55.9 Vitamin D deficiency, unspecified; Z13.9 Encounter for screening, unspecified
CPT/HCPCS: 36415; 80053; 80061; 82024; 82306; 82670; 82679; 82728; 82784; 83036; 83090; 83525; 83540; 83550; 83735; 84153; 84255; 84410; 84439; 84443; 84481; 84630; 85025; 86140

== ENCOUNTER 2021-11-01 12:36 | Outpatient (CLI) | payer BC | END 2021-11-01 23:59 | disposition home or self-care (01) | LOC: 64 CT 12:36 | PROVIDERS: ATTEND Otolaryngology | DX: J34.89 Other specified disorders of nose and nasal sinuses (principal) | CPT/HCPCS: 70486 ==

== ENCOUNTER 2021-11-01 12:42 | Outpatient (CLI) | payer BC ==
[2021-11-01 13:27] LABS: CLARITY,URINE CLEAR (Clear); GLUCOSE, URINE NEGATIVE (Neg); KETONES,URINE NEGATIVE (Neg); LEUKOCYTE ESTERASE ,URINE NEGATIVE (Neg); NITRITES, URINE NEGATIVE (Neg); OCCULT BLOOD,URINE NEGATIVE (Neg); PROTEIN,URINE NEGATIVE (Neg); UROBILINOGEN,URINE 0.2 E.U/dL (0.2-1.0)
[2021-11-01 13:29] LABS: COLOR,URINE STRAW (Yellow); UA COLLECTION TYPE CLN CATCH MIDSTREAM
[2021-11-01 13:32] LABS: BASOPHILS # (AUTO) 0.1 X10'3 (0-0.2); BASOPHILS % (AUTO) 0.9 % (0-1); EOSINOPHILS # (AUTO) 0.1 X10'3 (0-0.9); EOSINOPHILS % (AUTO) 1.6 % (0-6); HEMATOCRIT 46.8 % (42.0-52.0); HEMOGLOBIN 15.7 g/dl (14.0-17.9); LYMPHOCYTES % (AUTO) 30.6 % (21-51); MEAN CORPUSCULAR HGB CONC 33.5 g/dL (33.0-36.5); MEAN CORPUSCULAR VOLUME 95.6 FL (78-98); MEAN PLATELET VOLUME 8.6 FL (7.4-10.4); MONOCYTES # (AUTO) 0.6 X10'3 (0-0.9); MONOCYTES % (AUTO) 9.9 % (2-12); NEUTROPHILS # (AUTO) 3.7 X10'3 (1.8-7.7); PLATELET COUNT 201 X10'3 (140-440); RED BLOOD COUNT 4.89 X10'6 (4.70-6.10); WHITE BLOOD COUNT 6.4 X10'3 (4.5-11.0)
[2021-11-01 14:07] LABS: ALANINE AMINOTRANSFERASE 34 U/L (12-78); ALBUMIN 4.4 G/DL (3.4-5.0); ALBUMIN/GLOBULIN RATIO 1.2 (1.1-1.5); ALKALINE PHOSPHATASE 95 IU/L (46-116); ANION GAP 11 (8-16); ASPARTATE AMINO TRANSFERASE 25 U/L (10-37); BILIRUBIN,TOTAL 0.8 MG/DL (0.1-1.0); BLOOD UREA NITROGEN 21 MG/DL (7-18); BUN/CREATININE RATIO 19.1 (5.4-32.0); CALCIUM 9.5 MG/DL (8.5-10.1); CHLORIDE 104 MMOL/L (99-107); CHOL/HDL RATIO 3.1 (0.00-4.99); CHOLESTEROL 236 MG/DL (0-200); GLUCOSE 79 MG/DL (70-104); HDL CHOLESTEROL 76 MG/DL (35-60); LDL CHOLESTEROL 146 MG/DL (50-100); SODIUM 139 MMOL/L (135-145); TOTAL CARBON DIOXIDE 24.1 MMOL/L (24-32); TOTAL PROTEIN 8.2 G/DL (6.4-8.2); TRIGLYCERIDES 35 MG/DL (20-135); eGFR 69 ML/MIN
[2021-11-04 09:29] LABS: PSA, ULTRASENSITIVE W/O SERIAL 0.499 ng/mL (0.000-4.000)
[2021-11-06 16:17] LABS: TESTOSTERONE, FREE, DIRECT 9.4 pg/mL (7.2-24.0)
== END 2021-11-01 23:59 | disposition home or self-care (01) ==
LOC: LAB 12:42
PROVIDERS: ATTEND Family Medicine
DX: Z00.00 Encounter for general adult medical examination without abnormal findings (principal)
CPT/HCPCS: 36415; 80053; 80061; 81003; 84153; 84402; 84403; 84439; 84443; 85025

== ENCOUNTER 2024-02-10 12:36 | Outpatient (CLI) | payer BC ==
[2024-02-10 13:13] LABS: BASOPHILS % (AUTO) 0.6 % (0-1); EOSINOPHILS # (AUTO) 0.1 X10'3 (0-0.9); EOSINOPHILS % (AUTO) 2.6 % (0-6); HEMATOCRIT 45.9 % (42.0-52.0); HEMOGLOBIN 15.4 g/dl (14.0-17.9); LYMPHOCYTES # (AUTO) 1.7 X10'3 (1.1-4.8); LYMPHOCYTES % (AUTO) 33.7 % (21-51); MEAN CORPUSCULAR HEMOGLOBIN 32.4 PG (27.0-31.0); MEAN CORPUSCULAR HGB CONC 33.5 g/dL (33.0-36.5); MEAN CORPUSCULAR VOLUME 96.7 FL (78-98); MEAN PLATELET VOLUME 8.5 FL (7.4-10.4); MONOCYTES # (AUTO) 0.5 X10'3 (0-0.9); NEUTROPHILS # (AUTO) 2.8 X10'3 (1.8-7.7); NEUTROPHILS % (AUTO) 54.1 % (42-75); PLATELET COUNT 187 X10'3 (140-440); RED BLOOD COUNT 4.74 X10'6 (4.70-6.10); WHITE BLOOD COUNT 5.1 X10'3 (4.5-11.0)
[2024-02-10 13:16] LABS: BILIRUBIN,URINE NEGATIVE (Neg); CLARITY,URINE CLEAR (Clear); COLOR,URINE STRAW (Yellow); GLUCOSE, URINE NEGATIVE (Neg); KETONES,URINE NEGATIVE (Neg); LEUKOCYTE ESTERASE ,URINE NEGATIVE (Neg); NITRITES, URINE NEGATIVE (Neg); OCCULT BLOOD,URINE NEGATIVE (Neg); PROTEIN,URINE NEGATIVE (Neg); UROBILINOGEN,URINE 0.2 E.U/dL (0.2-1.0)
[2024-02-10 13:17] LABS: UA COLLECTION TYPE CLN CATCH MIDSTREAM
[2024-02-10 13:51] LABS: ALANINE AMINOTRANSFERASE 33 U/L (12-78); ALBUMIN 4.3 G/DL (3.4-5.0); ALBUMIN/GLOBULIN RATIO 1.3 (1.1-1.5); ALKALINE PHOSPHATASE 74 IU/L (46-116); ANION GAP 6 (8-16); ASPARTATE AMINO TRANSFERASE 26 U/L (10-37); BILIRUBIN,TOTAL 0.5 MG/DL (0.1-1.0); BLOOD UREA NITROGEN 16 MG/DL (7-18); CALCIUM 8.9 MG/DL (8.5-10.1); CHLORIDE 105 MMOL/L (99-107); GLUCOSE 96 MG/DL (70-104); POTASSIUM 4.1 MMOL/L (3.5-5.1); SODIUM 137 MMOL/L (135-145); TOTAL PROTEIN 7.5 G/DL (6.4-8.2); eGFR 76 ML/MIN
[2024-02-10 13:53] LABS: CHOL/HDL RATIO 3.1 (0.00-4.99); CHOLESTEROL 216 MG/DL (0-200); HDL CHOLESTEROL 70 MG/DL (35-60); LDL CHOLESTEROL 120 MG/DL (50-100); THYROID STIMULATING HORMONE 2.22 ulU/ml (0.34-4.50); TRIGLYCERIDES 68 MG/DL (20-135)
[2024-02-12 11:13] LABS: VITAMIN D, 25-HYDROXY 51.1 ng/mL (30.0-100.0)
[2024-02-12 13:16] LABS: FOLATE SERUM(FOLIC) 9.9 ng/mL (>3.0); PSA, ULTRASENSITIVE W/O SERIAL 0.593 ng/mL (0.000-4.000); TESTOSTERONE, SERUM 566 ng/dL (264-916); THYROXINE (T4) 7.6 ug/dL (4.5-12.0)
[2024-02-14 11:30] LABS: TESTOSTERONE, FREE, DIRECT 9.3 pg/mL (7.2-24.0)
[2024-02-17 13:30] LABS: VITAMIN D, 1,25 DIHYDROXY 63.1 pg/mL (24.8-81.5)
== END 2024-02-10 23:59 | disposition home or self-care (01) ==
LOC: RAD 12:36
PROVIDERS: ATTEND Family Medicine
DX: J32.8 Other chronic sinusitis (principal)
CPT/HCPCS: 36415; 70486; 80053; 80061; 81003; 82306; 82607; 82652; 82746; 84153; 84402; 84403; 84436; 84443; 85025

== ENCOUNTER 2024-05-10 06:37 | Day surgery (SDC) | payer BC ==
[2024-05-04 12:05] LABS: BASOPHILS % (AUTO) 0.7 % (0-1); EOSINOPHILS # (AUTO) 0.2 X10'3 (0-0.9); EOSINOPHILS % (AUTO) 3.6 % (0-6); MEAN CORPUSCULAR HEMOGLOBIN 32.8 PG (27.0-31.0); MEAN CORPUSCULAR HGB CONC 33.8 g/dL (33.0-36.5); MEAN PLATELET VOLUME 8.6 FL (7.4-10.4); MONOCYTES # (AUTO) 0.6 X10'3 (0-0.9); MONOCYTES % (AUTO) 9.9 % (2-12); NEUTROPHILS % (AUTO) 51.8 % (42-75); PRE OP HEMATOCRIT 47.5 % (42.0-52.0); PRE OP PLATELET COUNT 194 X10'3 (140-440); PRE OP WHITE BLOOD COUNT 5.8 10'3 (4.8-10.8); RED BLOOD COUNT 4.89 X10'6 (4.70-6.10); RED CELL DISTRIBUTION WIDTH 13.3 % (11.5-14.5)
[2024-05-04 12:24] LABS: ALBUMIN/GLOBULIN RATIO 1.1 (1.1-1.5); ALKALINE PHOSPHATASE 80 IU/L (46-116); BLOOD UREA NITROGEN 14 MG/DL (7-18); BUN/CREATININE RATIO 12.7 (10.0-20.0); CALCIUM 8.9 MG/DL (8.5-10.1); CHLORIDE 106 MMOL/L (99-107); PRE OP ALT 39 U/L (30-65); PRE OP ANION GAP 9 (8-16); PRE OP AST 23 U/L (10-37); PRE OP BILIRUB, TOTAL 0.5 MG/DL (0.0-1.0); PRE OP GLUCOSE 76 MG/DL (70-104); PRE OP POTASSIUM 4.7 MMOL/L (3.4-5.1); PRE OP SODIUM 144 MMOL/L (135-145); TOTAL PROTEIN 7.6 G/DL (6.4-8.2); eGFR 68 ML/MIN
[2024-05-04 13:33] LABS: PRE OP PROTIME 10.3 SECONDS (9.0-12.0)
[~2024-05-10] VITALS: Ht 193 cm; Wt 95.3 kg
[2024-05-10] VITALS (16 sets, daily range): BP systolic 113–144; BP diastolic 75–95; PULSE 58–78; RESP 12–19; TEMP 96.9; O2SAT 97–99
[~2024-05-10 06:37] MED LIST changes: -NO HOME MEDS; +SOLR150T PO
[2024-05-10] MEDS ORDERED: epiNEPHrine 1 mg/ml 30ml MDV ONE (06:48)
[2024-05-10] MEDS ORDERED: LIDOcaine 1% w/EPI 1:100,000 inj. MDV 50 ML VIAL ONE (06:48)
[2024-05-10] MEDS ORDERED: methylPREDNISolone acetate 80mg/ml inj**IM only ONE (06:48)
[2024-05-10] MEDS ORDERED: cocaine 4% topical solution 4ml bottle ONE (06:48)
[2024-05-10] MEDS ORDERED: Thrombin (Bovine) 5,000 unit vial TP ONE (06:49)
[2024-05-10] MEDS ORDERED: mupirocin 2% ointment 22GM ONE (06:49)
[2024-05-10] MEDS: ringers solution, lacted 1,000 ML IV SCH ×2 (07:13→09:46)
[2024-05-10] MEDS: famotidine 20mg tablet PO ONE (07:13)
[2024-05-10] MEDS: tranexamic acid 1gm/0.7% sal. 100 ML IV ONE (07:13)
[2024-05-10] MEDS: ceFAZolin 2gm in dextrose, iso 50 ML IV ONE (07:13)
[2024-05-10] MEDS: oxymetazoline 15 ML nasal spray NS ONE (07:38)
[2024-05-10] MEDS ORDERED: dexamethasone sod phosphate 4mg/ml inj. ONE (08:03)
[2024-05-10] MEDS ORDERED: propofol inj 20 ML IV ONE (08:03)
[2024-05-10] MEDS ORDERED: fentaNYL/PF 50MCG/1 ML 2ML syringe ONE (08:03)
[2024-05-10] MEDS ORDERED: acetaminophen 1,000mg/100ml IV 100 ML IV ONE (08:03)
[2024-05-10] MEDS ORDERED: midazolam 1 mg/ML 2ml injection ONE (08:03)
[2024-05-10] MEDS ORDERED: ondansetron/PF 4mg/2ml inj ONE (08:03)
[2024-05-10] MEDS ORDERED: LIDOcaine 2% (20mg/ml) 5ml vial ONE (08:03)
[2024-05-10] MEDS ORDERED: fentaNYL/PF 50MCG/1 ML 2ML syringe IV PRN (08:10)
[2024-05-10] MEDS ORDERED: morphine 2 MG/ML inj. syringe IV PRN (08:10)
[2024-05-10] MEDS ORDERED: sevoflurane 250ml liquid IH ONE (08:10)
[2024-05-10] MEDS ORDERED: ondansetron/PF 4mg/2ml inj IV PRN (08:10)
[2024-05-10] MEDS ORDERED: hydrALAZINE 20mg/ml inj. IV PRN (08:10)
[2024-05-10] MEDS ORDERED: labetalol 20mg/4ml (5mg/ml) syringe IV PRN (08:10)
[2024-05-10] MEDS: morphine 4 MG/ML inj SYRINge IV PRN (09:47)
[2024-05-10] MEDS: salt irrigation nasal spray 45 ML SPRAY NS PRN (09:55)
[2024-05-10] MEDS: fentaNYL/PF 50MCG/1 ML 2ML syringe IV PRN (09:57)
[2024-05-10] MEDS: HYDROcodone/acetaminophen 5mg/325mg tablet PO ONE (10:27)
== END 2024-05-10 11:32 | disposition home or self-care (01) ==
LOC: PAS 06:37
PROVIDERS: ATTEND Otolaryngology
DX: J34.3 Hypertrophy of nasal turbinates (principal); J33.9 Nasal polyp, unspecified; G47.33 Obstructive sleep apnea (adult) (pediatric); Z85.828 Personal history of other malignant neoplasm of skin; Z79.899 Other long term (current) drug therapy; Z98.890 Other specified postprocedural states
CPT/HCPCS: 30140; 31240; 36415; 80053; 82948; 85025; 85610; 85730; 93005; A6402; J0131; J0171; J0690; J1100; J2003; J2250; J2270; J2405; J2704; J3010; J3490; J7030; J7040; J7120; Z7506; Z7508; Z7512; A4618; A6449; A7000; J1010

== ENCOUNTER 2025-02-03 08:04 | Outpatient (CLI) | payer BC | END 2025-02-03 23:59 | disposition home or self-care (01) | LOC: LAB 08:04 | PROVIDERS: ATTEND Dermatology | DX: L20.89 Other atopic dermatitis (principal) | CPT/HCPCS: 36415 ==

== ENCOUNTER 2025-02-05 13:25 | Emergency (ER) | payer BC ==
[~2025-02-05] VITALS: Ht 195.6 cm; Wt 96.7 kg
[2025-02-05] MEDS ORDERED: iohexol 300mg/ml 100ml inj. ONE (13:31)
[2025-02-05] MEDS: normal saline 1000ML IV soln IVB ONE (13:37)
[2025-02-05 13:59] LABS: MEAN PLATELET VOLUME 9.1 FL (7.4-10.4); RED CELL DISTRIBUTION WIDTH 13.3 % (11.5-14.5)
[2025-02-05 14:09] LABS: CREATININE 1.12 MG/DL (0.60-1.10); TOTAL CARBON DIOXIDE 26.5 MMOL/L (24-32); eCRCL 88 ML/MIN; eGFR 67 ML/MIN
[2025-02-05 14:12] LABS: APTT 23 SECONDS (22-32); INR 1.0 INR
--- NOTE | 2025-02-05 14:15 | RADIOLOGY REPORT ---
EXAM: CT CT HEAD INDICATION: neck left shoulder pain no LOC TECHNIQUE: CT of the head without intravenous contrast. Radiation Dose : 1. Head: CT Dose: CTDI volume is 65 mGy. Dose-length product is 1265 mGy*cm The dose indicators for CT are the volume Computed Tomography (CT) Dose Index (CTDIvol) and the Dose Length Product (DLP), and are measured in units of mGy and mGy-cm, respectively. These indicators are not patient dose, but values generated from the CT scanner acquisition factors. The report includes radiation exposure data for exposures received during this examination. COMPARISON: None FINDINGS: There is no evidence of acute intracranial hemorrhage, extra-axial collection, mass effect, midline s hift, herniation or hydrocephalus. The ventricles, sulci and cisterns are age appropriate. The jarrett-white differentiation is intact. Patchy periventricular and subcortical white matter hypoattenuation is nonspecific but may be related to small vessel ischemic disease. The visualized paranasal sinuses and mastoid air cells are clear. The surrounding soft tissues and osseous structures are unremarkable. IMPRESSION: No acute intracranial abnormality. Radiation optimization: All CT scans at this facility use at least one of these dose optimization carlos hniques: automated exposure control mA and/or kV adjustment per patient size (includes targeted exam s where dose is matched to clinical indication) or iterative reconstruction.
--- NOTE | 2025-02-05 14:16 | RADIOLOGY REPORT ---
EXAM: CT CT CERVICAL SPINE INDICATION: neck left shoulder pain no LOC EXAM DATE: 02/05/2025 01:46 PM COMPARISON: MRI C SPINE on DOS: 01/26/20 TECHNIQUE: Multiple axial CT images of the cervical spine were obtained using bone algorithm. Axial a nd coronal reformatting was done. Bone and soft tissue windows were reviewed. Radiation Dose Information: CT Dose: CTDI volume is 22 mGy. Dose-length product is 443 mGy*cm FINDINGS: The cervical alignment is intact. No acute cervical spine fracture is identified. The vertebral body heights are intact. No suspicious osseous lesions are identified. No significant degenerative changes are identified. There is no prevertebral soft tissue swelling. IMPRESSION: 1. No evidence of acute cervical spine fracture or traumatic malalignment. All CT scans at this medical facility are performed using dose modulation techniques as appropriate t o a performed exam including the following: Automated exposure control was utilized; adjustment of th e MA and/or KV according to patient size; and use of iterative reconstruction technique.
--- NOTE | 2025-02-05 14:47 | RADIOLOGY REPORT ---
Exam: CT CT CHEST ABDOMEN PELVIS IV CON W/ IV CONTRAST History: trauma alert Comparison Study: CT CHEST ABDOMEN PELVIS on DOS: 05/26/19, CT ABDOMEN PELVIS on DOS: 05/26/19 Technique: Multidetector spiral CT of the chest, abdomen and pelvis was performed from lower neck to pubic symphysis. Intravenous contrast was administered during this examination. Portal venous imagi ng was obtained. Axial, coronal and sagittal multiplanar reformats were performed by the technologist on a separate workstation. Radiation Dose : 1. Chest/Abdomen/Pelvis: CTDIvol 33 mGy, DLP 2440 mGy*cm. Findings: Lower neck: Normal thyroid. Lungs: Compressive atelectasis seen in the right lung Heart/Vascular Structures: Normal heart size. No pericardial effusion. Lymph Nodes: No adenopathy Pleura: Large right pneumothorax. Liver: The liver is normal in size. No focal lesions. Normal hepatic vascular enhancement. Gallbladder and Biliary Tree: Unremarkable Spleen: Unremarkable Pancreas: The pancreas is normal in appearance without focal lesions or abnormal enhancement. Adrenal Glands: Unremarkable Kidneys: Kidneys demonstrate normal symmetric enhancement without focal lesions, calculi or hydroneph rosis. Bladder: Unremarkable Bowel: The stomach is grossly normal in appearance. Small bowel and colon are normal in caliber and d istribution. Normal appendix is visualized in the right lower quadrant without findings of appendici tis. Ascites: Absent Lymphadenopathy: No mesenteric, retroperitoneal or periportal lymphadenopathy. Abdominal Wall and Mesentery: Small fat containing umbilical hernia. Vasculature: The visualized abdominal aorta is normal in size and caliber. Abdominal and pelvic vess els demonstrate normal enhancement. Pelvic Organs: Unremarkable Musculoskeletal: Mildly displaced acute traumatic fractures of the right 3-9 anterolateral ribs. Exte nsive subcutaneous emphysema is seen in the right posterolateral chest wall IMPRESSION: Mildly displaced acute traumatic fractures of the right 3-9 anterolateral ribs. Large right pneumotho rax. Critical Findings: Large right pneumothorax; extensive subcutaneous emphysema; mildly displaced fract ures of right ribs 3-9; critical findings communicated immediately. Findings discussed with BIB DIAZ at 02/05/2025 4:44 PM HOB MILL OPERATOR, who acknowledged receipt and understan ding of the findings. Extensive subcutaneous emphysema is seen in the right posterolateral chest wall Critical findings discussed with Dr. Diaz by Dr. Santizo via phone on 02/05/2025 02:42 PM.
--- NOTE | 2025-02-05 14:48 | Physician Documentation ---
History of Present Illness ~ Chief Complaint: Trauma Level 2 Stated Complaint: FALL Time Seen by MD: 13:33 OK to notify your PCP?: Yes Primary Medical Doctor: [facility] Source: patient, RN/MD, RN notes reviewed, old records Mode of Arrival: POV Exam Limitations: no limitations HPI This patient was riding a horse at high-speed. Horse got back to got thrown landed on his right side having severe chest pain shortness of breath as well as low back pain. Denies any motor sensory deficits just hurts to move. Also hurts to breathe and he feels short of breath he is otherwise in good health has no other complaints at this time. No loss of consciousness. His shoulder seems to be hurting him multiple bruises throughout his body. Patient has some subcutaneous air on his right flank multiple abrasions. Tetanus within 5 years?: No Medication Reconciliation Allergies: Coded Allergies: prednisone (Verified Allergy, Unknown, 05/10/24) CAUSED ANXIETY Scheduled Solriamfetol HCl ([place]), 1 TAB PO DAILY, (Reported) Past Medical History Past Medical History: No Pertinent History, *GI/HEPATOBILIARY* Other Past Medical History: Seasonal allergies, low T Past Surgical History: abdominal surgery, orthopedic surgeries (, nasal surgery,), other Alcohol Use: Occasionally Drug Use: none Occupation: employed Review of Systems All Other Systems at this time: Reviewed and Negative Physical Exam Vital Signs: RN Vital Signs have been reviewed: Yes, Temperature: 98.1, Source: Oral, Heart Rate: 89, Respiratory Rate: 17, BP: 137/85, Pulse Oximetry: 88, Weight: 96.700 Oxygen Flow Rate: 2.0 Physical Exam General: The patient is well developed, well nourished, nontoxic appearing and is in mild acute distress. Not moving Skin: [place], warm and dry with no rashes. HEENT: Head was normocephalic and traumatic. Eyes - pupils equal, round, reactive to light and accommodation. Extraocular movements were intact. Conjunctivae were nonicteric. The mouth and oropharynx were clear with moist mucous membranes. There were no pharyngeal exudates or erythema. Neck: Supple and nontender. There was no jugular venous distention, lymphadenopathy, thyromegaly or masses. C-collar in place Chest: Crepitus on the right flank. Decreased breath sounds on the right. Clicks and pops noted on the right slightly asymmetrical breathing from the right compared to the left. No wheezes no rhonchi Heart: Rate regular and rhythmic. S1, S2. No murmurs. Palpation of the chest wall was normal. No rubs or thrills. Abdomen: Soft, nontender and nondistended. Positive bowel sounds. No guarding or rebound. No hepatosplenomegaly or palpable masses. Extremities: No cyanosis, clubbing or edema. The patient moves all extremities. Pulses were equal and symmetric. Right shoulder has a slight abrasion but he has full range of motion able to internally and externally rotate. Abrasions at the elbow. Back: Soft tissue swelling at the lower lumbar area with the abrasions of the low back flank as well as the sacrum. Diffuse tenderness along the lumbar spine. Neurologic: Cranial nerves II-XII were intact. Motor sensory grossly intact Psychologic: The patient was oriented to person, place and time. The patient demonstrated appropriate judgement and insight. Procedures Chest Tube : Location: midclavicular line, third intercostal space Chest Tube Procedure: betadine prep, sterile drapes applied, sterile dressing applied Anesthesia: 1% Lidocaine w/ Epi Volume Anesthetic (ccs): 10 [place] of Air [place]?: No Number of Attempts: 2 Tube Sutured to Skin: No Post Procedure CXR?: Yes Tolerated Procedure Well?: yes, no complications Progress Progress Note Consultations made are in the medical record. Consultations with trauma surgery was discussed. Afterwards consultation with ICU attending. Followed by hospitalist. I then spoke once again to Dr Pascal who agreed the patient was having pulmonary contusions and potential respiratory complications and would require the services at [facility] where they can manage the patient better as a trauma including nerve blocks. I later spoke to Dr. Choudhary her as well as the [facility] ER physician who kindly agreed to accept the patient for further workup and care. Results/Orders Reviewed/noted all lab results: Yes Results/Orders Orders - TIMMY CAMARGO MD Ct Chest Abdomen Pelvis Iv Con (02/05/25 13:26) Urinalysis, Cult If Indicated (02/05/25 13:26) Ct Cervical Spine (02/05/25 13:42) Ct Head (02/05/25 13:42) Page Hospitalist (02/05/25 15:28) Fill Out Med Reconciliation (02/05/25 15:28) Ct Thoracic Spine (02/05/25 16:09) Ct Lumbar Spine (02/05/25 16:09) Chest,Single View (02/05/25 16:53) Completed Orders - TIMMY CAMARGO MD Ct Chest Abdomen Pelvis Iv Con (02/05/25 13:26) Hs Troponin I W Calculations (02/05/25 13:26) Hs Troponin I W Calculations (02/05/25 15:26) Cbc/Diff (02/05/25 13:26) Pt Inr (02/05/25 13:26) PTT (02/05/25 13:26) Type And Screen (02/05/25 13:26) BMP (02/05/25 13:26) Hydromorphone 1 Mg/Ml/Pf (Dilaudid Inj.) (02/05/25 13:35) Normal Saline 1000ml (0.9% Sodium Chlori (02/05/25 13:35) Ct Cervical Spine (02/05/25 13:42) Ct Head (02/05/25 13:42) Hydromorphone 1 Mg/Ml/Pf (Dilaudid Inj.) (02/05/25 14:50) Hydromorphone 1 Mg/Ml/Pf (Dilaudid Inj.) (02/05/25 15:15) Tetanus/Pertuss/Diph Acell/Pf (Boostrix (02/05/25 15:30) Lidocaine 1% W/Epi 1:100,000 (Xylocaine (02/05/25 15:35) Diazepam Inj (Valium Inj) (02/05/25 16:10) Hydromorphone 1 Mg/Ml/Pf (Dilaudid Inj.) (02/05/25 16:10) Chest,Single View (02/05/25 16:53) Medications Received in ER Medications (Trade) Dose Ordered Sig/Radha Route PRN Reason Start Time Stop Time Status Last Admin Dose Admin (Dilaudid inj.) 1 mg ONCE ONCE IV 02/05/25 13:35 02/05/25 13:36 DC 02/05/25 13:37 1 MG (0.9% sodium chloride (NS) 1000ml IV soln) 1,000 ml ONCE ONCE IVB 02/05/25 13:35 02/05/25 13:36 DC 02/05/25 13:37 1,000 ML (Dilaudid inj.) 1 mg ONCE ONCE IV 02/05/25 14:50 02/05/25 14:51 DC 02/05/25 14:58 1 MG (Dilaudid inj.) 1 mg ONCE ONCE IV 02/05/25 15:15 02/05/25 15:16 DC 02/05/25 15:46 1 MG (Boostrix vaccine syringe) 0.5 ml ONCE ONCE IMVAC 02/05/25 15:30 02/05/25 15:31 DC 02/05/25 15:45 0.5 ML (Xylocaine 1%-EPI 1:100,000) Physician to administ... ONCE ONCE IJ 02/05/25 15:35 02/05/25 15:36 DC 02/05/25 15:46 7 ML (Valium inj) 5 mg ONCE ONCE IV 02/05/25 16:10 02/05/25 16:11 DC 02/05/25 16:15 5 MG (Dilaudid inj.) 1 mg ONCE ONCE IV 02/05/25 16:10 02/05/25 16:11 DC 02/05/25 16:14 1 MG Vital Signs 02/05/25 02/05/25 02/05/25 02/05/25 13:26 13:30 13:30 13:33 Temp 98.1 98.1 Pulse 90 89 Resp 18 20 B/P (MAP) 137/85 Pulse Ox 91 88 O2 Delivery Nasal Cannula Nasal Cannula* O2 Flow Rate 2.0 2 FiO2 28 02/05/25 02/05/25 02/05/25 02/05/25 13:37 13:51 14:15 14:45 Temp 98.1 98.1 98.1 Pulse 80 84 84 Resp 17 18 18 20 B/P (MAP) 155/88 (110) 139/92 (108) 116/76 (89) Pulse Ox 97 94 96 O2 Flow Rate 8.0 2.0 2.0 02/05/25 02/05/25 02/05/25 02/05/25 14:45 14:47 14:58 15:40 Temp 98.1 98.1 Pulse 74 88 Resp 22 20 18 20 B/P (MAP) 116/76 (89) 112/70 (84) Pulse Ox 96 94 O2 Flow Rate 2.0 02/05/25 02/05/25 02/05/25 02/05/25 15:46 15:58 15:58 16:14 Temp 98.1 98.1 Pulse 96 Resp 18 24 26 B/P (MAP) 115/73 (87) Pulse Ox 92 95 O2 Flow Rate 2.0 4.0 02/05/25 02/05/25 02/05/25 16:15 16:26 16:55 Temp 98.1 98.1 98.1 Pulse 92 96 97 Resp 20 14 20 B/P (MAP) 105/70 (82) 121/78 (92) 132/82 (99) Pulse Ox 93 95 97 O2 Flow Rate 4.0 4.0 2.0 Laboratory Tests Test 02/05/25 13:38 02/05/25 15:26 White Blood Count 12.4 H Red Blood Count 4.87 Hemoglobin 15.6 Hematocrit 46.3 Mean Corpuscular Volume 95.0 Mean Corpuscular Hemoglobin 32.0 H Mean Corpuscular Hemoglobin Concent 33.7 Red Cell Distribution Width 13.3 Platelet Count 217 Mean Platelet Volume 9.1 Neutrophils (%) (Auto) 85.2 H Lymphocytes (%) (Auto) 9.7 L Monocytes (%) (Auto) 4.5 Eosinophils (%) (Auto) 0.2 Basophils (%) (Auto) 0.4 Neutrophils # (Auto) 10.6 H Lymphocytes # (Auto) 1.2 Monocytes # (Auto) 0.6 Eosinophils # (Auto) 0.0 Basophils # (Auto) 0.1 CBC Comment Prothrombin Time 10.1 INR International Normalized Ratio 1.0 Activated Partial Thromboplast Time 23 Coagulation Comments Sodium Level 145 Potassium Level 4.0 Chloride Level 108 H Carbon Dioxide Level 26.5 Anion Gap 11 Blood Urea Nitrogen 19 H Creatinine 1.12 H Estimated GFR/1.73 m2 67 BUN/Creatinine Ratio 17.0 Glucose Level 171 H Calcium Level 9.3 Troponin I High Sensitivity 5 6 Albumin 4.2 Chemistry Comments Troponin I High Sens Percent Delta 20 Troponin I Hi Sens Absolute Change 1 Re-Evaluation Re-Evaluation : Re-Evaluation: Improved Progress Patient was seen and examined. Patient is given reassurance. Patient was seen immediately upon arrival. IV lines were established. CT chest abdomen and pelvis with IV contrast were obtained. Patient received a fluid bolus and multiple pain medications of Dilaudid. Patient received 3 mg of Dilaudid and 5 mg of Valium and had a chest tube placed UROCIL ill by myself. There was no complications. Cat scan for was reassuring. Multiple rib fractures lung contusion, subcutaneous air and soft tissue injuries was noted. Patient remained hemodynamically stable. Wounds were cleaned Ancef and tetanus was given. Finally patient was then transferred to [facility] after successful chest tube placement and re-expansion with normal vital signs and remaining hemodynamically stable. Initial laboratory work shows a WBC of 12.4 with a hemoglobin of 15 and 46 which is reassuring no signs of acute blood loss. Coagulations were also within normal limits chemistry was within normal limits. Glucose is slightly elevated at 171 and negative troponins for cardiac contusions. Patient is having no arrhythmias on the monitor. Continuous video tape editor interpretation shows normal sinus rhythm heart rate 90s, no ectopy, normal, my interpretation. Pulse oximetry monitor interpretation shows low oxygenation at 92% on 2 L oxygen, abnormal, my interpretation. EKG/XRAY/CT/US/VASC/MRI CT #1: CT: C-spine With Contrast?: No Impression EXAM: CT CT CERVICAL SPINE INDICATION: neck left shoulder pain no LOC EXAM DATE: 02/05/2025 01:46 PM COMPARISON: MRI C SPINE on DOS: 01/26/20 TECHNIQUE: Multiple axial CT images of the cervical spine were obtained using bone algorithm. Axial and coronal reformatting was done. Bone and soft tissue windows were reviewed. Radiation Dose Information: CT Dose: CTDI volume is 22 mGy. Dose-length product is 443 mGy*cm FINDINGS: The cervical alignment is intact. No acute cervical spine fracture is identified. The vertebral body heights are intact. No suspicious osseous lesions are identified. No significant degenerative changes are identified. There is no prevertebral soft tissue swelling. IMPRESSION: 1. No evidence of acute cervical spine fracture or traumatic malalignment. All CT scans at this medical facility are performed using dose modulation techniques as appropriate to a performed exam including the following: Automated exposure control was utilized; adjustment of the MA and/or KV according to patient size; and use of iterative reconstruction technique. #2: CT: head With Contrast?: No Impression EXAM: CT CT HEAD INDICATION: neck left shoulder pain no LOC TECHNIQUE: CT of the head without intravenous contrast. Radiation Dose : 1. Head: CT Dose: CTDI volume is 65 mGy. Dose-length product is 1265 mGy *cm The dose indicators for CT are the volume Computed Tomography (CT) Dose Index (CTDIvol) and the Dose Length Product (DLP), and are measured in units of mGy and mGy-cm, respectively. These indicators are not patient dose, but values generated from the CT scanner acquisition factors. The report includes radiation exposure data for exposures received during this examination. COMPARISON: None FINDINGS: There is no evidence of acute intracranial hemorrhage, extra-axial collection, mass effect, midline shift, herniation or hydrocephalus. The ventricles, sulci and cisterns are age appropriate. The jarrett-white differentiation is intact. Patchy periventricular and subcortical white matter hypoattenuation is nonspecific but may be related to small vessel ischemic disease. The visualized paranasal sinuses and mastoid air cells are clear. The surrounding soft tissues and osseous structures are unremarkable. IMPRESSION: No acute intracranial abnormality. Radiation optimization: All CT scans at this facility use at least one of these dose optimization techniques: automated exposure control mA and/or kV adjustment per patient size (includes targeted exams where dose is matched to clinical indication) or iterative reconstruction. #3: Interpreted By: both CT: abdomen/pelvis With Contrast?: Yes Impression Exam: CT CT CHEST ABDOMEN PELVIS IV CON W/ IV CONTRAST History: trauma alert Comparison Study: CT CHEST ABDOMEN PELVIS on DOS: 05/26/19, CT ABDOMEN PELVIS on DOS: 05/26/19 Technique: Multidetector spiral CT of the chest, abdomen and pelvis was performed from lower neck to pubic symphysis. Intravenous contrast was administered during this examination. Portal venous imaging was obtained. Axial, coronal and sagittal multiplanar reformats were performed by the technologist on a separate workstation. Radiation Dose : 1. Chest/Abdomen/Pelvis: CTDIvol 33 mGy, DLP 2440 mGy*cm. Findings: Lower neck: Normal thyroid. Lungs: Compressive atelectasis seen in the right lung Heart/Vascular Structures: Normal heart size. No pericardial effusion. Lymph Nodes: No adenopathy Pleura: Large right pneumothorax. Liver: The liver is normal in size. No focal lesions. Normal hepatic vascular enhancement. Gallbladder and Biliary Tree: Unremarkable Spleen: Unremarkable Pancreas: The pancreas is normal in appearance without focal lesions or abnormal enhancement. Adrenal Glands: Unremarkable Kidneys: Kidneys demonstrate normal symmetric enhancement without focal lesions, calculi or hydronephrosis. Bladder: Unremarkable Bowel: The stomach is grossly normal in appearance. Small bowel and colon are normal in caliber and distribution. Normal appendix is visualized in the right lower quadrant without findings of appendicitis. Ascites: Absent Lymphadenopathy: No mesenteric, retroperitoneal or periportal lymphadenopathy. Abdominal Wall and Mesentery: Small fat containing umbilical hernia. Vasculature: The visualized abdominal aorta is normal in size and caliber. Ab dominal and pelvic vessels demonstrate normal enhancement. Pelvic Organs: Unremarkable Musculoskeletal: Mildly displaced acute traumatic fractures of the right 3-9 anterolateral ribs. Extensive subcutaneous emphysema is seen in the right posterolateral chest wall IMPRESSION: Mildly displaced acute traumatic fractures of the right 3-9 anterolateral ribs. Large right pneumothorax. Critical Findings: Large right pneumothorax; extensive subcutaneous emphysema; mildly displaced fractures of right ribs 3-9; critical findings communicated immediately. Findings discussed with TIMMY CAMARGO at 02/05/2025 4:44 PM BOOK OR SCRIPT EDITOR, who acknowledged receipt and understanding of the findings. Extensive subcutaneous emphysema is seen in the right posterolateral chest wall Critical findings discussed with Dr. Camargo by Dr. Santizo via phone on 02/05/2025 02:42 PM. Medical Decision Making Additional info obtained from: old records Differential Dx:Considerations: Include: Closed head injury, Cardiac injury, Fracture(s), Intraabdominal injury, Pneumothorax, Cerebral contusion, Pulmonary contusion, Spine injury, Tracheal injury, Urological injury, Vascular injury, Abrasion(s), Contusion(s), Foreign body(s), Hematoma(s), Laceration(s), Encephalopathy, Other Departure Disposition: 51 HOSPICE/MEDICAL FACILITY Impression: Primary Impression: Trauma Additional Impressions: Bilateral pulmonary contusion Qualified Codes: S27.322A - Contusion of lung, bilateral, initial encounter Multiple fractures of ribs, right side, initial encounter for closed fracture Multiple contusions Traumatic fracture of ribs of right side with pneumothorax Condition: Critical Referrals: NO PRIMARY CARE PROVIDER (PCP) Education Educated: Patient Educated regarding: diagnosis Critical Care Note Total Time (mins): 100 Critical Care Note The very real possibility of a deterioration of this patient's condition requ ired the highest level of my preparedness for sudden, emergent intervention. I provided critical care services, which included medication orders, frequent reevaluations of the patient's condition and response to treatment, ordering and reviewing test results, and discussing the case with various consultants. Excludes time spent performing separately billable procedures. The critical care time associated with the care of the patient was. 100 minutes Signature Scribe Signature: . Attestation: The note accurately reflects work and decisions made by me.Timmy Camargo MD 02/05/25 17:22 TIMMY CAMARGO MD Feb 05, 2025 14:48
[2025-02-05] MEDS ORDERED: LIDOcaine 1% W/epiNEPHrine 1:200,000 10ml vial IJ ONE (15:30)
[2025-02-05] MEDS: TETanus/Pertussis (Acell)/Diphther VAC/PF (Tdap-Adult) 0.5ml syringe IMVAC ONE (15:45)
[2025-02-05] MEDS: LIDOcaine 1% W/epiNEPHrine 1:100,000 20ml vial IJ ONE (15:46)
[2025-02-05] MEDS: diazepam inj 5 MG/ML inj. IV ONE (16:15)
--- NOTE | 2025-02-05 17:09 | RADIOLOGY REPORT ---
CHEST RADIOGRAPH Indication: post chest tube placement Technique: Single frontal view of the chest was obtained COMPARISON: CT CT CHEST ABDOMEN PELVIS IV CON W/ IV CONTRAST on DOS: 02/05/25, CHEST,SINGLE VIEW on DO S: 12/24/20, CT CHEST ABDOMEN PELVIS on DOS: 05/26/19 FINDINGS: Lines and Tubes: Right-sided chest tube is noted. Lungs: Right lower lobe opacities may reflect atelectasis or contusions. Pleura: Probable trace right apical pneumothorax. No pneumothorax. Cardiomediastinal contours: Unremarkable Bones: Multiple right-sided rib fractures are again seen IMPRESSION: Right-sided chest tube is noted. Probable trace right apical pneumothorax. Right lower lobe opacities may reflect atelectasis or contusions. Multiple right-sided rib fractures are again seen.
[2025-02-05 17:46] VITALS: BP 113/86; PULSE 100; RESP 22; TEMP 98.2; O2SAT 95
[2025-02-06] MEDS ORDERED: ceFAZolin/D5W- 1GM premix 50 ML IV SCH
== END 2025-02-05 17:51 | disposition hospice, inpatient (51) ==
LOC: ER 13:25
DX: S22.41XA Multiple fractures of ribs, right side, initial encounter for closed fracture (principal); S27.0XXA Traumatic pneumothorax, initial encounter; S27.322A Contusion of lung, bilateral, initial encounter; S50.311A Abrasion of right elbow, initial encounter; S09.8XXA Other specified injuries of head, initial encounter; Z72.89 Other problems related to lifestyle; Z88.8 Allergy status to other drugs, medicaments and biological substances; Z79.899 Other long term (current) drug therapy; W18.30XA Fall on same level, unspecified, initial encounter; Y93.89 Activity, other specified; Y92.89 Other specified places as the place of occurrence of the external cause; Y99.8 Other external cause status
CPT/HCPCS: 32551; 36415; 70450; 71045; 71260; 72125; 74177; 80048; 84484; 85025; 85610; 85730; 86885; 86900; 86901; 90471; 90715; 96361; 96374; 96375; 96376; 99291; 99292; J1171; J3360; J3490; J7030; Q9967; A4615

== ENCOUNTER 2025-02-15 07:39 | Outpatient (CLI) | payer BC ==
[2025-02-15] MEDS ORDERED: iohexol 300mg/ml 100ml inj. ONE (07:50)
--- NOTE | 2025-02-15 12:19 | RADIOLOGY REPORT ---
Exam: CT CT CHEST ABDOMEN PELVIS IV CON W/ IV ORAL CONTRAST History: PNEUMOTHORAX, UNSPECIFIED Comparison Study: CT CT CHEST ABDOMEN PELVIS IV CON W/ IV CONTRAST on DOS: 02/05/25, CT CHEST ABDOMEN PELVIS on DOS: 05/26/19, CT ABDOMEN PELVIS on DOS: 05/26/19 Technique: Multidetector CT of the chest, abdomen and pelvis was performed from lower neck to pubic s ymphysis. Intravenous contrast was administered during this examination. Coronal and sagittal multipl yesenia reformats were performed by the technologist on a separate workstation. Radiation Dose Information: CT Dose: CTDI volume is 22.6 mGy. Dose-length product is 1262.4 mGy*cm Findings: Lower neck: Unremarkable thyroid. Lungs: Bilateral lower lobe atelectasis. No suspicious mass. Central airways: Patent. Pleura: Resolution of the previously demonstrated large right pneumothorax. Trace right pleural effus ion. Heart/Vascular Structures: The heart is normal in size. No pericardial effusion. No coronary artery calcifications. Normal caliber thoracic aorta and main pulmonary artery. Lymph Nodes: No adenopathy. Liver: The liver is normal in size. No focal lesions. Punctate water density lesions throughout the liver likely reflecting cysts. Normal hepatic vascular enhancement. Gallbladder and Biliary Tree: Unremarkable gallbladder. No biliary ductal dilatation. Spleen: Unremarkable Pancreas: The pancreas is normal in appearance without focal lesions or abnormal enhancement. Adrenal Glands: Unremarkable Kidneys: Kidneys demonstrate normal symmetric enhancement without focal lesions, calculi or hydroneph rosis. Bladder: Unremarkable Bowel: The stomach is grossly normal in appearance. Small bowel and colon are normal in caliber and d istribution. The appendix is visualized and normal in caliber. Peritoneum: No pneumoperitoneum. No ascites or fluid collection. Lymphadenopathy: No mesenteric, retroperitoneal or periportal lymphadenopathy. Abdominal Wall and Mesentery: Unremarkable. Vasculature: The visualized abdominal aorta is normal in size and caliber. Abdominal and pelvic vess els demonstrate normal enhancement. Pelvic Organs: Prostate and seminal vesicles are unremarkable. Musculoskeletal: Redemonstrated multiple right rib fractures. Soft tissues: Fat containing umbilical hernia. Fat containing bilateral inguinal hernias. Slight inc rease in size of the AP dimension of a previously seen paraspinal muscle hematoma spanning L3-L5 now measuring 4.0 cm in thickness, previously measuring 2.6 cm in thickness (remeasured for more accurate comparison). Craniocaudal and transverse dimensions are not significantly changed. No active contras t extravasation as seen previously. Persistent although decreased right chest wall and flank subcutan eous emphysema. IMPRESSION: 1. Resolution of previously seen large right pneumothorax since prior chest CT from 02/05/2025. 2. Bilateral lower lobe atelectasis. 3. Slight increase in thickness of paraspinal muscle hematoma. No active contrast extravasation. 4. Decreased right chest wall and right flank subcutaneous edema. 5. Small right pleural effusion. All CT scans at this medical facility are performed using dose modulation techniques as appropriate t o a performed exam including the following: Automated exposure control was utilized; adjustment of th e MA and/or KV according to patient size; and use of iterative reconstruction technique.
== END 2025-02-15 23:59 | disposition home or self-care (01) ==
LOC: RAD 07:39
PROVIDERS: ATTEND Surgery
DX: J90 Pleural effusion, not elsewhere classified (principal); J93.9 Pneumothorax, unspecified; J98.11 Atelectasis; K42.9 Umbilical hernia without obstruction or gangrene; K40.20 Bilateral inguinal hernia, without obstruction or gangrene, not specified as recurrent; R60.0 Localized edema
CPT/HCPCS: 71260; 74177; Q9967

== ENCOUNTER 2025-02-23 12:42 | Day surgery (SDC) | payer BC ==
[~2025-02-23] VITALS: Ht 193 cm; Wt 96.0 kg
[2025-02-23] MEDS ORDERED: tPA-cathflo 2mg/2ml IV flush 2 MG/2 ML VIAL ONE ×2 (13:55→14:04)
[2025-02-23 13:59] VITALS: BP 122/85; PULSE 70; RESP 16; TEMP 98.1; O2SAT 89
[2025-02-23 14:00] VITALS: RESP 16; O2SAT 97
[2025-02-23 15:30] VITALS: BP 115/70; PULSE 65; RESP 16; O2SAT 99
[2025-02-23 16:00] VITALS: BP 122/82; PULSE 62; RESP 16; O2SAT 98
[2025-02-23] MEDS ORDERED: ALBU18HF2 INH (16:25)
[2025-02-23] MEDS ORDERED: OXYC-145 PO (16:25)
[2025-02-23] MEDS ORDERED: ACET-1025 PO (16:25)
[2025-02-23] MEDS ORDERED: NAPR220C62 PO (16:25)
--- NOTE | 2025-02-23 18:04 | PROGRESS NOTE ---
H&P - Interval Note Providers to CC ~ Patient examined and condition: Yes Interval changes as follows: S/p Trauma horse related fall on back, with large apparent mixed solid and l iquid fluid collection presumed to be hematoma. No change in H/P from less than 30 d ago. Risks benefits alt of US pigtail access and drainage with tpa lavage d/w pt and informed consent disclosed. ANTONY ALVARADO MD Feb 23, 2025 18:04
--- NOTE | 2025-02-23 18:07 | PROGRESS NOTE ---
Progress Note - Angio Providers to CC ~ Angio Progress Note: 8.5 Fr pigtail placed into lower dorsal back approx lower lumbar region superficial hematoma. Total of 147cc of dark bloody fluid hand aspirated after use of 4mg TPA left in place x 1 hr for final 37cc. No immed complications, dermabond placed. D/W family if any signs of redness, fever chills sweats to immed call and start course of antibiotics. ANTONY ALVARADO MD Feb 23, 2025 18:07
--- NOTE | 2025-02-23 19:02 | RADIOLOGY REPORT ---
Ultrasound-guided dorsal spine region hematoma aspiration/thrombolysis HISTORY: Accident related to course riding injury with large mixed density hematoma along the dorsum of the lower lumbar spine in the fairly superficial subcutaneous space. Recent small needle aspiration yielded just scant fluid therefore needing larger drainage pigtail. After explanation of the above procedure and informed consent, patient was prepped and draped in usual sterile fashion. With the patient in a left lateral decubitus position a direct posterior approximate L4 level approach was made into a mixed hypoechoic density apparent hematoma. A 5 [place] Yueh needle was upsized over an 035 wire to an 8.5 [place] pigtail catheter. Through this pigtail catheter a total of 110 cc of dark bloody fluid was removed. Next, a total of 4 mg TPA in a total volume of 10 cc saline was administered into the cavity and allowed to sit in place for 1 hour. Following this using an 035 wire through the pigtail catheter a total of 37 more cc was removed. Total volume removed therefore 147 cc dark bloody fluid. Post aspiration scanning demonstrated no evidence of extravasation or significant residual hematoma cavity. Dermabond was placed over the skin access site with attention directed towards maximum sterile technique. Instructions given to patient's spouse who is a nurse as well as the patient if there is any sign of fever chills night sweats or erythematous change at the site to call the interventional clinic immediately for a course of oral antibiotic therapy. IMPRESSION: Successful large hematoma aspiration and thrombolysis using TPA in the region of the dorsal spine subcutaneous tissues approximately L3-L4 lumbar level.
== END 2025-02-23 16:30 | disposition home or self-care (01) ==
LOC: SSTAY O 12:42
PROVIDERS: ATTEND Radiology Diagnostic Radiology
DX: R22.2 Localized swelling, mass and lump, trunk (principal)
CPT/HCPCS: 10030; C1769; 49185; A4421; A6258; A6449; C1729

== ENCOUNTER 2025-03-21 07:33 | Outpatient (CLI) | payer BC ==
[~2025-03-21 07:33] MED LIST changes: +ACET-1025 PO; +ALBU18HF2 INH; +NAPR220C62 PO; +OXYC-145 PO; -SOLR150T PO
[2025-03-21 08:26] LABS: MEAN PLATELET VOLUME 8.6 FL (7.4-10.4); RED CELL DISTRIBUTION WIDTH 13.5 % (11.5-14.5)
[2025-03-21 08:49] LABS: CHOL/HDL RATIO 3.1 (0.00-4.99); LDL CHOLESTEROL 111 MG/DL (50-100)
[2025-03-22 15:27] LABS: FSH, SERUM 8.1 mIU/mL (1.5-12.4); LUTEINIZING HORMONE 5.9 mIU/mL (1.7-8.6); PROLACTIN 5.6 ng/mL (3.6-25.2); TESTOSTERONE, SERUM 971 ng/dL (264-916)
[2025-03-24 13:16] LABS: TESTOSTERONE, FREE, DIRECT 12.0 pg/mL (6.6-18.1)
== END 2025-03-21 23:59 | disposition home or self-care (01) ==
LOC: LAB 07:33
PROVIDERS: ATTEND Student in an Organized Health Care Education/Training Program
DX: E29.1 Testicular hypofunction (principal); Z13.220 Encounter for screening for lipoid disorders
CPT/HCPCS: 36415; 80061; 83001; 83002; 84146; 84402; 84403; 84443; 85025